=== PATIENT | female | born 1975 | race Caucasian/White ===

== ENCOUNTER 2016-09-28 02:00 | Emergency (ER) | payer OTHER ==
[2016-09-28 02:34] VITALS: BP 128/79; PULSE 90; TEMP 97.5; BMI 23.0
[2016-09-28] MEDS ORDERED: ONDANSETRON 4 MG TABLET PO ONE (02:44)
[2016-09-28] MEDS ORDERED: HEMOQUE CONTROL SOLUTION ONE (02:48)
[2016-09-28] MEDS ORDERED: ONDANSETRON *ODT* 4 MG TABLET ONE (02:49)
--- NOTE | 2016-09-28 03:04 | PDOC ---
History of Present Illness - General Chief Complaint: Nausea Stated Complaint: PANIC ATTACK, NAUSEA History Source: Patient Exam Limitations: No Limitations - History of Present Illness Initial Comments: 09/28/16 03:04 Patient is a 41 year old female with h/o panic attack, DM, HTN, HLD, abdominoplasty, liposuction c/o panic attack tonight about midnight states took her Klonazopam without relief of symptoms and so called EMS for transport to the hospital. Currently she is feeling better since being in the ED but she is feeling nauseous. She has no other c/o palpitations, chest pain, dizziness, RG , abdominal pain PMD: Dr. Lan PMHX: as above PSOCHx: denies cig, etoh, durgs FamHx: noncontributory GENERAL/CONSTITUTIONAL: [No fever or chills. No weakness. No weight change.] HEAD, EYES, EARS, NOSE AND THROAT: [No change in vision. No ear pain or discharge. No sore throat.] CARDIOVASCULAR: (-) chest pain or shortness of breath.] RESPIRATORY: [No cough, wheezing, or hemoptysis.] GASTROINTESTINAL: (+) nausea, (-) vomiting, diarrhea or constipation. No rectal bleeding.] GENITOURINARY: [No dysuria, frequency, or change in urination.] MUSCULOSKELETAL: [No joint or muscle swelling or pain. No neck or back pain.] SKIN AND BREASTS: [No rash or easy bruising.] NEUROLOGIC: [No headache, vertigo, loss of consciousness, or loss of sensation.] PSYCHIATRIC: (+) depression or anxiety.] ENDOCRINE: [No increased thirst. No abnormal weight change.] HEMATOLOGIC/LYMPHATIC: [No anemia, easy bleeding, or history of blood clots.] ALLERGIC/IMMUNOLOGIC: [No hives or skin allergy. No latex allergy.] GENERAL: [The patient is awake, alert, and fully oriented, in no acute distress. ] HEAD: [Normal with no signs of trauma.] EYES: [Pupils equal, round and reactive to light, extraocular movements intact, sclera anicteric, conjunctiva clear.] ENT: [Ears normal, nares patent, oropharynx clear without exudates. Moist mucous membranes.] NECK: [Normal range of motion, supple without lymphadenopathy, JVD, or masses.] LUNGS: [Breath sounds equal, clear to auscultation bilaterally. No wheezes, and no crackles.] HEART: [Regular rate and rhythm, normal S1 and S2 without murmur, rub.] ABDOMEN: [Soft, nontender, normoactive bowel sounds. No guarding, no rebound. No masses.] EXTREMITIES: [Normal range of motion, no edema. No clubbing or cyanosis. No cords, erythema, or tenderness.] NEUROLOGICAL: [Cranial nerves II through XII grossly intact. Normal speech, normal gait.] PSYCH: [Normal mood, normal affect.] SKIN: [Warm, Dry, normal turgor, no rashes or lesions noted.] Past History - Past Medical History Allergies/Adverse Reactions: Allergies Allergy/AdvReac Type Severity Reaction Status Date / Time No Known Allergies Allergy Verified 09/28/16 02:21 Home Medications: Ambulatory Orders Losartan Potassium [Cozaar -] 25 mg PO DAILY 05/17/15 Atorvastatin Ca [Lipitor] 10 mg PO HS 05/21/15 Metformin HCl [Glucophage] 500 mg PO BID 07/18/16 Diabetes: Yes (NIDDM) HTN: Yes Hypercholesterolemia: Yes HIV: No Psychiatric Problems: Yes (anxiety) Suicide Attempt (Hx): No - Surgical History Abdominal Surgery: Yes - Family Disease History Family Disease History: Heart Disease: Father ( of [place] at 63) - Immunization History Immunization Up to Date: No - Psycho/Social/Smoking Cessation Hx Anxiety: Yes Suicidal Ideation: No Smoking Status: No Smoking History: Never smoked Number of Cigarettes Smoked Daily: 0 Hx Alcohol Use: No Drug/Substance Use Hx: No Substance Use Type: None *Physical Exam - Vital Signs Last Vital Signs Temp Pulse Resp BP Pulse Ox 97.5 F L 90 18 128/79 99 09/28/16 02:30 09/28/16 02:30 09/28/16 02:30 09/28/16 02:30 09/28/16 02:30 ED Treatment Course - Medications Given in the ED: ED Medications Discontinued Medications Generic Name Dose Route Start Last Admin Trade Name Freq PRN Reason Stop Dose Admin Ondansetron HCl 4 mg 09/28/16 02:44 09/28/16 03:01 Zofran - PO 09/28/16 02:45 8 mg ONCE ONE Administration Medical Decision Making - Medical Decision Making 09/28/16 03:27 Patient is a 41 year old female with h/o panic attack, DM, HTN, HLD, abdominoplasty, liposuction c/o panic attack tonight about midnight states took her Klonazopam with relief of symptoms and so called EMS for transport to the hosptial. given Zofran 4 mg by mouth Finger stick done 176 Patient is feeling better and requesting to go home I discussed the physical exam findings, ancillary test results and final diagnoses with the patient. I answered all of the patient's questions. The patient was satisfied with the care received and felt comfortable with the discharge plan and treatment plan. The Patient agrees to follow up with the primary care physician within 24-72 hours. *DC/Admit/Observation/Transfer Diagnosis at time of Disposition: Nausea, Panic anxiety syndrome - Discharge Dispostion Disposition: HOME Condition at time of disposition: Stable - Referrals Referrals: Phong Lan [Primary Care Provider] - - Patient Instructions Printed Discharge Instructions: DI for Panic Disorder, DI for Nausea -- Adult Additional Instructions: Your Discharge Instructions: You must call primary care physician within 24 hours to arrange follow-up. Return to the Emergency Department with any new, persistent or worsening symptoms, for fever, chills, SOB, dizziness or any other concerning changes that may occur.
== END 2016-09-28 05:18 | disposition home or self-care (01) ==
LOC: JER 02:00
DX: F41.0 Panic disorder [episodic paroxysmal anxiety] (principal); R11.0 Nausea; I10 Essential (primary) hypertension; E78.00 Pure hypercholesterolemia, unspecified; E11.9 Type 2 diabetes mellitus without complications; Z79.01 Long term (current) use of anticoagulants
CPT/HCPCS: 99281-25

== ENCOUNTER 2017-03-10 04:21 | Emergency (ER) | payer OTHER ==
--- NOTE | 2017-03-10 04:37 | PDOC ---
History of Present Illness - General History Source: Patient Exam Limitations: No Limitations - History of Present Illness Initial Comments: 03/10/17 04:50 The patient is a 41 year old male, with a significant past medical history of HTN, HLD, diabetes, panic attacks and depression, who presents to the emergency department with abdominal pain, nausea, vomiting, and diarrhea that began yesterday. She states that she was the only person who ate what she last ate. Pt developed originally what she thought was heartburn but she soon after she began to experience diarrhea. Pt has been nauseous and vomiting. The patient denies chest pain, shortness of breath, headache and dizziness. Denies fever or chills. Denies dysuria, frequency, urgency and hematuria. Heart Disease: Father ( of [place] at 63) Allergies: None Past surgical history: Abdominal surgery Social history: No alcohol, tobacco or drug use PCP - Dr. Myrna Lan <Maria De Jesus Fermin - Last Filed: 03/10/17 04:49> - General History Source: Patient <Az Diaz - Last Filed: 03/10/17 07:00> - General Chief Complaint: Vomiting/Diarrhea Stated Complaint: VOMITING, DIARRHEA, ABD PAIN Time Seen by Provider: 03/10/17 04:35 Past History <Maria De Jesus Fermin - Last Filed: 03/10/17 04:49> - Past Medical History Diabetes: Yes (NIDDM) HTN: Yes Hypercholesterolemia: Yes HIV: No Psychiatric Problems: Yes (anxiety) Suicide Attempt (Hx): No - Surgical History Abdominal Surgery: Yes - Family Disease History Family Disease History: Heart Disease: Father ( of [place] at 63) - Immunization History Immunization Up to Date: No - Psycho/Social/Smoking Cessation Hx Anxiety: Yes Suicidal Ideation: No Smoking Status: No Smoking History: Never smoked Number of Cigarettes Smoked Daily: 0 Hx Alcohol Use: No Drug/Substance Use Hx: No Substance Use Type: None <Az Diaz - Last Filed: 03/10/17 07:00> - Past Medical History Allergies/Adverse Reactions: Allergies Allergy/AdvReac Type Severity Reaction Status Date / Time No Known Allergies Allergy Verified 09/28/16 02:21 Home Medications: Ambulatory Orders Losartan Potassium [Cozaar -] 25 mg PO DAILY 05/17/15 Atorvastatin Ca [Lipitor] 10 mg PO HS 09/29/15 Metformin HCl [Glucophage] 500 mg PO BID 07/18/16 Metoclopramide HCl [Reglan -] 10 mg PO TID #30 tablet 03/10/17 Review of Systems - Review of Systems Able to Perform ROS?: Yes Comments:: 03/10/17 04:50 CONSTITUTIONAL: Absent: fever, chills, diaphoresis, generalized weakness, malaise, loss of appetite HEENT: Absent: rhinorrhea, nasal congestion, throat pain, throat swelling, difficulty swallowing, mouth swelling, ear pain, eye pain, visual Changes CARDIOVASCULAR: Absent: chest pain, syncope, palpitations, irregular heart rate, lightheadedness , peripheral edema RESPIRATORY: Absent: cough, shortness of breath, dyspnea with exertion, orthopnea, wheezing, stridor, hemoptysis GASTROINTESTINAL: Present: abdominal pain, nausea, vomiting, diarrhea Absent: constipation, melena, hematochezia GENITOURINARY: Absent: dysuria, frequency, urgency, hesitancy, hematuria, flank pain, genital pain MUSCULOSKELETAL: Absent: myalgia, arthralgia, joint swelling SKIN: Absent: rash, itching, pallor HEMATOLOGIC/IMMUNOLOGIC: Absent: easy bleeding, easy bruising, lymphadenopathy, frequent infections ENDOCRINE: Absent: unexplained weight gain, unexplained weight loss, heat intolerance, cold intolerance NEUROLOGIC: Absent: headache, focal weakness or paresthesias, dizziness, unsteady gait, seizure, mental status changes, bladder or bowel incontinence PSYCHIATRIC: Absent: anxiety, depression, suicidal or homicidal ideation, hallucinations. <Maria De Jesus Fermin - Last Filed: 03/10/17 04:49> *Physical Exam - Physical Exam Comments: 03/10/17 04:51 GENERAL: Well developed, well nourished. Awake and alert. +Mild distress HEENT: Normocephalic, atraumatic. PERRLA, EOMI. No conjunctival pallor. Sclera are non- icteric. Moist mucous membranes. Oropharynx is clear. NECK: Supple. Full ROM. No JVD. Carotid pulses 2+ and symmetric, without bruits. No thyromegaly. No lymphadenopathy. CARDIOVASCULAR: Regular rate and rhythm. No murmurs, rubs, or gallops. Distal pulses are 2+ and symmetric. PULMONARY: No evidence of respiratory distress. Lungs clear to auscultation bilaterally. No wheezing, rales or rhonchi. ABDOMINAL: +Moderate tenderness to abdomen diffusely. Soft. Non-distended. No rebound or guarding. No organomegaly. Normoactive bowel sounds. MUSCULOSKELETAL Normal range of motion at all joints. No bony deformities or tenderness. No CVA tenderness. EXTREMITIES: No cyanosis. No clubbing. No edema. No calf tenderness. SKIN: Warm and dry. Normal capillary refill. No rashes. No jaundice. NEUROLOGICAL: Alert, awake, appropriate. PSYCHIATRIC: Cooperative. Good eye contact. Appropriate mood and affect. <Maria De Jesus Fermin - Last Filed: 03/10/17 04:49> ED Treatment Course - LABORATORY CBC & Chemistry Diagram: 03/10/17 04:45 03/10/17 04:45 <Maria De Jesus Fermin - Last Filed: 03/10/17 04:49> - LABORATORY CBC & Chemistry Diagram: 03/10/17 04:45 03/10/17 04:45 <Az Diaz - Last Filed: 03/10/17 07:00> Medical Decision Making - Medical Decision Making 03/10/17 06:59 Dr. Diaz: The scribe's documentation has been prepared under my direction and personally reviewed by me in its entirery. I confirm that the note above accurately reflects all work, treatment, procedures, and medical decision making performed by me. <Az Diaz - Last Filed: 03/10/17 07:00> *DC/Admit/Observation/Transfer - Attestations Scribe Attestion: 03/10/17 04:53 Documentation prepared by Maria De Jesus Fermin, acting as medical officer psychiatry for Az Diaz MD. <Maria De Jesus Fermin - Last Filed: 03/10/17 04:49> - Discharge Dispostion Admit: No <Az Diaz - Last Filed: 03/10/17 07:00> Diagnosis at time of Disposition: Abdominal pain Qualifiers: Abdominal location: generalized Qualified Code(s): R10.84 - Generalized abdominal pain - Discharge Dispostion Disposition: HOME Condition at time of disposition: Improved - Referrals Referrals: Phong Lan [Primary Care Provider] - - Patient Instructions Printed Discharge Instructions: DI for Abdominal Pain-Adult
[2017-03-10] MEDS ORDERED: PANTOPRAZOLE SODIUM 40 MG in SODIUM CHLORIDE 100 ML IVPB ONE (04:38)
[2017-03-10] MEDS ORDERED: morphine CARPU-JECT 4 MG/1 ML DISP.SYRIN IVPUSH ONE (04:38)
[2017-03-10] MEDS ORDERED: ONDANSETRON 4 MG/2 ML VIAL IVPUSH STA (04:39)
[2017-03-10] MEDS ORDERED: SODIUM CHLORIDE 1,000 ML IV STA (04:39)
[2017-03-10] MEDS ORDERED: ONDANSETRON 4 MG/2 ML VIAL ONE (04:44)
[2017-03-10] MEDS ORDERED: PANTOPRAZOLE SODIUM 40 MG VIAL ONE (04:45)
[2017-03-10 04:47] LABS: WHITE BLOOD COUNT 7.2 K/mm3 (4.0-10.0)
[2017-03-10 04:49] LABS: BASOPHIL 0.8 % (0-2.0); EOSINOPHIL 6.8 % (0-4.5); MCHC 32.8 g/dl (32.0-36.0); MEAN CELL VOLUME 91.4 fl (80-96); NEUTROPHILS 37.9 % (42.8-82.8); PLATELET COUNT 171 K/MM3 (134-434); RDW 13.8 % (11.6-15.6)
[2017-03-10 04:55] VITALS: BP 139/84; PULSE 109; TEMP 98.6; BMI 22.3
[2017-03-10] MEDS ORDERED: morphine CARPU-JECT 2 MG/1 ML DISP.SYRIN ONE (04:59)
[2017-03-10 05:16] LABS: ALBUMIN 3.9 g/dl (3.4-5.0); ANION GAP 8 (8-16); BILIRUBIN,TOTAL 0.3 mg/dL (0.2-1.0); CALCIUM 9.2 mg/dL (8.5-10.1); CO2 25 mmol/L (21-32); CREATININE 0.8 mg/dL (0.55-1.02); GLUCOSE,RANDOM 146 mg/dL (74-106); SGOT/AST 27 U/L (15-37); SGPT/ALT 50 U/L (12-78); TOT PROT 7.7 g/dl (6.4-8.2)
[2017-03-10 05:17] LABS: ALK PHOS 94 U/L (45-117)
[2017-03-10 05:22] LABS: MAGNESIUM 1.8 mg/dL (1.8-2.4)
[2017-03-10 05:26] LABS: ACETONE SERUM NEGATIVE (NEGATIVE)
[2017-03-10] MEDS ORDERED: METOCLOPRAMIDE HCL INJECTION 10 MG/2 ML VIAL IVPUSH ONE (05:28)
[2017-03-10 05:29] LABS: URINE APPEARANCE CLEAR; URINE BILIRUBIN NEGATIVE (NEGATIVE); URINE BLOOD NEGATIVE (NEGATIVE); URINE COLOR LTYELLOW; URINE GLUCOSE (UA) NEGATIVE (NEGATIVE); URINE KETONE TRACE (NEGATIVE); URINE LEUK ESTERASE NEGATIVE (NEGATIVE); URINE NITRITE NEGATIVE (NEGATIVE); URINE PROTEIN NEGATIVE (NEGATIVE); URINE UROBILINOGEN NEGATIVE mg/dL (0.2-1.0)
[2017-03-10] MEDS ORDERED: METOCLOPRAMIDE HCL INJECTION 10 MG/2 ML VIAL ONE (05:30)
== END 2017-03-10 07:05 | disposition home or self-care (01) ==
LOC: JER 04:21
PROC: 3E0337Z Introduction of Electrolytic and Water Balance Substance into Peripheral Vein, Percutaneous Approach (ICD-10-PCS; principal; 2017-03-10)
PROC: 3E033GC Introduction of Other Therapeutic Substance into Peripheral Vein, Percutaneous Approach (ICD-10-PCS; 2017-03-10)
PROC: 3E033NZ Introduction of Analgesics, Hypnotics, Sedatives into Peripheral Vein, Percutaneous Approach (ICD-10-PCS; 2017-03-10)
PROC: 3E033GC Introduction of Other Therapeutic Substance into Peripheral Vein, Percutaneous Approach (ICD-10-PCS; 2017-03-10)
DX: R10.84 Generalized abdominal pain (principal); I10 Essential (primary) hypertension; E78.00 Pure hypercholesterolemia, unspecified; E78.5 Hyperlipidemia, unspecified; E11.9 Type 2 diabetes mellitus without complications; Z79.84 Long term (current) use of oral hypoglycemic drugs; F41.0 Panic disorder [episodic paroxysmal anxiety]; F32.9 Major depressive disorder, single episode, unspecified
CPT/HCPCS: 36415; 80053; 81003; 82009; 82150; 83690; 83735; 84703; 85025; 85610; 96361; 96365; 96375; 99281-25

== ENCOUNTER 2017-04-27 06:55 | Emergency (ER) | payer OTHER ==
[2017-04-27 07:12] VITALS: TEMP 97.9; BMI 24.1
--- NOTE | 2017-04-27 07:31 | PDOC ---
History of Present Illness - General Chief Complaint: Respiratory Stated Complaint: DIFFICULTY BREATHING Time Seen by Provider: 04/27/17 07:11 History Source: Patient - History of Present Illness Presenting Symptoms: Chest Pain Timing/Duration: reports: resolved prior to arrival Chest Pain Radiation: reports: no radiation Past History - Past Medical History Allergies/Adverse Reactions: Allergies Allergy/AdvReac Type Severity Reaction Status Date / Time No Known Allergies Allergy Verified 04/27/17 07:57 Home Medications: Ambulatory Orders Losartan Potassium [Cozaar -] 25 mg PO DAILY 05/17/15 Atorvastatin Ca [Lipitor] 10 mg PO HS 05/21/15 Metformin HCl [Glucophage] 500 mg PO BID 07/18/16 Metoclopramide HCl [Reglan -] 10 mg PO TID #30 tablet 03/10/17 Diabetes: Yes (NIDDM) HTN: Yes Hypercholesterolemia: Yes HIV: No Psychiatric Problems: Yes (anxiety) Suicide Attempt (Hx): No - Surgical History Abdominal Surgery: Yes - Family Disease History Family Disease History: Heart Disease: Father ( of [place] at 63) - Immunization History Immunization Up to Date: No - Psycho/Social/Smoking Cessation Hx Anxiety: Yes Suicidal Ideation: No Smoking Status: No Smoking History: Unknown if ever smoked Number of Cigarettes Smoked Daily: 0 Hx Alcohol Use: No Drug/Substance Use Hx: No Substance Use Type: None Review of Systems - Review of Systems Constitutional: No: Chills, Fever Respiratory: No: Cough, Shortness of Breath Cardiac (ROS): Yes: Chest Pain, Chest Tightness. No: Lightheadedness, Palpitations, Syncope ABD/GI: No: Nausea, Vomiting *Physical Exam - Vital Signs Last Vital Signs Temp Pulse Resp BP Pulse Ox 97.9 F 92 H 14 113/86 99 04/27/17 07:07 04/27/17 07:07 04/27/17 07:07 04/27/17 07:07 04/27/17 07:07 - Physical Exam General Appearance: Yes: Appropriately Dressed. No: Apparent Distress HEENT: positive: Normal Voice Neck: positive: Supple Respiratory/Chest: positive: Lungs Clear, Normal Breath Sounds. negative: Respiratory Distress Cardiovascular: positive: Regular Rate, S1, S2 Extremity: positive: Normal Inspection Integumentary: positive: Dry, Warm Neurologic: positive: Fully Oriented, Alert, Normal Mood/Affect Heart Score/ECG Review - ECG Intrepretation Comment:: 04/27/17 08:00 Twelve-lead EKG was performed and reviewed by me. There is normal sinus rhythm with a normal rate. The axis is normal. The intervals are normal. There are no ST or T wave abnormalities. Impression: Normal twelve-lead EKG Medical Decision Making - Medical Decision Making 04/27/17 07:26 41-year-old female, history of diabetes, hypertension, hypercholesterolemia, panic attacks, takes ativan as needed, presents with shortness of breath with chest tightness and burning sensation to chest that started this morning while having a verbal altercation with her . Has since taken lorazepam and feels significantly better. Reports that she now feels tired. Patient states symptoms is consistent with her panic attack except that burning sensation to chest is a bit unusual. Patient has no known CAD. Denies SI/HI. Denies domestic violence at home and has no fear for her safety see exam Anxiety Since improved w/ ativan at home Pt sleeping in ED and stable on monitor w/ unremarkable exam -will check ekg given chest discomfort, if normal, will not proceed w/ w/u as very low suspicion for ACS -reassess 04/27/17 08:02 EKG unremarkable. Patient reports feeling significantly better w/ no sob or cp at this time. Feels comfortable with being discharged. Patient to follow-up with her PMD as needed 04/27/17 08:04 *DC/Admit/Observation/Transfer Diagnosis at time of Disposition: Anxiety - Discharge Dispostion Disposition: HOME Condition at time of disposition: Improved - Patient Instructions Printed Discharge Instructions: Anxiety and Panic Attacks (Alternative Therapy) Additional Instructions: Please follow-up with your primary care physician
[2017-04-27 09:20] VITALS: BP 128/74; PULSE 80
--- NOTE | 2017-04-27 17:27 | EKG ---
Test Reason : Blood Pressure : / mmHG Vent. Rate : 076 BPM Atrial Rate : 076 BPM P-R Int : 174 ms QRS Dur : 068 ms QT Int : 370 ms P-R-T Axes : 073 034 037 degrees QTc Int : 416 ms NORMAL SINUS RHYTHM NORMAL ECG WHEN COMPARED WITH ECG OF 13-MAR-2016 00:22, NO SIGNIFICANT CHANGE WAS FOUND CLINICAL CORRELATION IS RECOMMENDED Confirmed by EARL FROST MD ([id number]) on 04/27/2017 5:27:23 PM Referred By: Confirmed By:EARL FROST MD
== END 2017-04-27 07:45 | disposition home or self-care (01) ==
LOC: JER 06:55
DX: F41.9 Anxiety disorder, unspecified (principal); I10 Essential (primary) hypertension; E78.00 Pure hypercholesterolemia, unspecified; E11.9 Type 2 diabetes mellitus without complications
CPT/HCPCS: 93005; 93010; 99281-25

== ENCOUNTER 2017-05-18 05:09 | Emergency (ER) | payer OTHER ==
[2017-05-18 05:31] VITALS: BP 120/84; PULSE 75; TEMP 98.3; BMI 18.6
--- NOTE | 2017-05-18 07:07 | PDOC ---
History of Present Illness - General Chief Complaint: Psychiatric Stated Complaint: ANXIETY Time Seen by Provider: 05/18/17 05:34 Past History - Past Medical History Allergies/Adverse Reactions: Allergies Allergy/AdvReac Type Severity Reaction Status Date / Time No Known Allergies Allergy Verified 05/18/17 05:27 Home Medications: Ambulatory Orders Losartan Potassium [Cozaar -] 25 mg PO DAILY 05/17/15 Atorvastatin Ca [Lipitor] 10 mg PO HS 05/21/15 Metformin HCl [Glucophage] 500 mg PO BID 07/18/16 Clonazepam [Klonopin -] 0.5 mg PO DAILY PRN 05/18/17 Diabetes: Yes (NIDDM) HTN: Yes Hypercholesterolemia: Yes Psychiatric Problems: Yes (anxiety) - Surgical History Abdominal Surgery: Yes - Family Disease History Family Disease History: Heart Disease: Father ( of [place] at 63) - Immunization History Immunization Up to Date: No - Suicide/Smoking/Psychosocial Hx Smoking Status: No Smoking History: Never smoked Have you smoked in the past 12 months: No Number of Cigarettes Smoked Daily: 0 Information on smoking cessation initiated: No Hx Alcohol Use: No Drug/Substance Use Hx: No Substance Use Type: None *Physical Exam - Vital Signs Last Vital Signs Temp Pulse Resp BP Pulse Ox 98.3 F 75 18 120/84 100 05/18/17 05:28 05/18/17 05:28 05/18/17 05:28 05/18/17 05:28 05/18/17 05:28 *DC/Admit/Observation/Transfer Diagnosis at time of Disposition: Panic attack - Discharge Dispostion Disposition: HOME Condition at time of disposition: Stable Admit: No - Referrals Referrals: Phong Lan [Primary Care Provider] - - Patient Instructions Printed Discharge Instructions: DI for Anxiety -- Adult, Anxiety and Panic Attacks (Alternative Therapy) Additional Instructions: Please try to establish care with a therapist or psychiatrist for continued evaluation of your anxiety and panic attacks. If you have any new or worsening symptoms, please return to the ER.
--- NOTE | 2017-05-18 13:16 | EKG ---
Test Reason : Blood Pressure : / mmHG Vent. Rate : 080 BPM Atrial Rate : 080 BPM P-R Int : 170 ms QRS Dur : 072 ms QT Int : 358 ms P-R-T Axes : 008 044 037 degrees QTc Int : 412 ms NORMAL SINUS RHYTHM NORMAL ECG WHEN COMPARED WITH ECG OF 27-APR-2017 07:35, NO SIGNIFICANT CHANGE WAS FOUND Confirmed by EARL FROST MD ([id number]) on 05/18/2017 1:15:36 PM Referred By: Confirmed By:EARL FROST MD
== END 2017-05-18 07:42 | disposition home or self-care (01) ==
LOC: JER 05:09
DX: F41.0 Panic disorder [episodic paroxysmal anxiety] (principal); I10 Essential (primary) hypertension; E11.9 Type 2 diabetes mellitus without complications; E78.00 Pure hypercholesterolemia, unspecified
CPT/HCPCS: 93005; 93010; 99282-25

== ENCOUNTER 2017-06-14 03:29 | Emergency (ER) | payer OTHER ==
[2017-06-14 03:52] VITALS: BP 132/85; PULSE 94; TEMP 98; BMI 21.5
[2017-06-14] MEDS ORDERED: ALBUTEROL SO4 2.5/IPRATROPIUM 0.5 INH SOL 3 ML VIAL.NEB. NEB ONE ×2 (03:55→04:15)
[2017-06-14] MEDS ORDERED: predniSONE 20 MG TABLET (UD) PO ONE (03:55)
--- NOTE | 2017-06-14 04:00 | PDOC ---
History of Present Illness - General Chief Complaint: Respiratory Stated Complaint: DIFFICULTY BREATHING Time Seen by Provider: 06/14/17 03:46 History Source: Patient Exam Limitations: No Limitations - History of Present Illness Initial Comments: 06/14/17 03:55 41yo Female patient w/ PmHx: HTN, HLD, NIDDM, Asthma, Liposuction, and Tummy Tuck presents to the ED c/o difficulty breathing that began tonight. Patient states she occasionally gets symptoms like this, and drinks water to try and clear her throat. Patient reports feeling of something blocking her airway. She denies fever, CP, Back pain, Abd pain, vaginal bleeding, hemoptysis, or any other complaints at this time. LNMP: 1 week ago. +current smoker. Timing/Duration: reports: just prior to arrival Severity: reports: mild Episode Description: See HPI Possible Cause: Yes: occasional episodes Modifying Factors: improves with: coughing, other. worse with: activity, albuterol inhaler, albuterol nebulizer, antibiotics, lying down, oxygen, rest Associated Symptoms: reports: cough. denies: denies symptoms, chest pain/ soreness, dizziness, earache, facial pain, fever/chills, headache, lightheadedness, muscle aches, nasal congestion, nasal drainage, shortness of breath, sinus infection, sore throat, wheezing, other Aspirin Received prior to arrival: No: no aspirin today, unknown, 81 mg x 1, 81 mg x 2, 81 mg x 3, 81 mg x 4, 325 mg x 1, provided at home, provided by EMS, provided by ED ASA Contraindications(Core Measure): No: Allergy, Other, Active Blding w/i 24 hrs., Plavix, Receiving Warfarin Past History - Travel Traveled outside of the country in the last 30 days: No Close contact w/someone who was outside of country & ill: No - Past Medical History Allergies/Adverse Reactions: Allergies Allergy/AdvReac Type Severity Reaction Status Date / Time No Known Allergies Allergy Verified 05/18/17 05:27 Home Medications: Ambulatory Orders Losartan Potassium [Cozaar -] 25 mg PO DAILY 05/17/15 Atorvastatin Ca [Lipitor] 10 mg PO HS 05/21/15 Metformin HCl [Glucophage] 500 mg PO BID 07/18/16 Clonazepam [Klonopin -] 0.5 mg PO DAILY PRN 05/18/17 Alprazolam [Xanax] 0.5 mg PO TID PRN #9 tablet MDD 3 tab 06/14/17 Azithromycin [Zithromax -] 250 mg PO DAILY #4 tablet 06/14/17 Clonazepam [KlonoPIN] 0.5 mg PO BID PRN #8 tablet MDD 2 tab 06/14/17 Guaifenesin [Mucinex] 600 mg PO Q12H PRN #24 tab.er.12h 06/14/17 Prednisone [Deltasone -] 20 mg PO DAILY #4 tablet 06/14/17 Sitagliptin Phosphate [Januvia] 50 mg PO DAILY 06/14/17 Diabetes: Yes (NIDDM) HTN: Yes Hypercholesterolemia: Yes Psychiatric Problems: Yes (Anxiety) - Surgical History Abdominal Surgery: Yes (Lipo & tummy tuck) - Family Disease History Family Disease History: Heart Disease: Father ( of [place] at 63) - Immunization History Immunization Up to Date: No - Suicide/Smoking/Psychosocial Hx Smoking Status: No Smoking History: Never smoked Have you smoked in the past 12 months: No Number of Cigarettes Smoked Daily: 0 Information on smoking cessation initiated: No Hx Alcohol Use: No Drug/Substance Use Hx: No Substance Use Type: None Respiratory Specific PMHX - Complaint Specific PMHX Angina: No Bronchitis: No Pneumonia: No Pulmonary Embolus: No TB (Tuberculosis): No Review of Systems - Review of Systems Able to Perform ROS?: Yes Is the patient limited Setswana proficient: No Constitutional: No: Chills, Fever Respiratory: Yes: Cough, Other (Diff breathing). No: Shortness of Breath, Wheezing, Productive cough Cardiac (ROS): No: Chest Pain, Lightheadedness, Palpitations, Chest Tightness ABD/GI: No: Constipated, Diarrhea, Nausea, Vomiting : No: Burning, Dysuria, Flank Pain, Hematuria, Pain Musculoskeletal: No: Back Pain All Other Systems: Reviewed and Negative *Physical Exam - Vital Signs Last Vital Signs Temp Pulse Resp BP Pulse Ox 98.0 F 94 H 20 132/85 100 06/14/17 03:48 06/14/17 03:48 06/14/17 03:48 06/14/17 03:48 06/14/17 03:48 - Physical Exam General Appearance: Yes: Nourished, Appropriately Dressed. No: Apparent Distress, Mild Distress, Moderate Distress, Severe Distress HEENT: positive: EOMI, NASIMA, Normal ENT Inspection, Normal Voice, Symmetrical, TMs Normal, Pharynx Normal Neck: positive: Trachea midline, Normal Thyroid, Supple. negative: Rigid, Stridor, Lymphadenopathy (R), Lymphadenopathy (L), Tender lateral, Tender midline Respiratory/Chest: positive: Lungs Clear, Normal Breath Sounds. negative: Chest Tender, Respiratory Distress, Accessory Muscle Use, Labored Respiration, Rapid RR, Rhonchi, Stridor, Wheezing Cardiovascular: positive: Regular Rhythm, Regular Rate Musculoskeletal: positive: Normal Inspection. negative: CVA Tenderness, Decreased Range of Motion, Vertebral Tenderness Extremity: positive: Normal Capillary Refill, Normal Inspection, Normal Range of Motion. negative: Pedal Edema, Swelling, Calf Tenderness, Erythema, Inflammation Integumentary: positive: Normal Color, Dry, Warm Neurologic: positive: aircraft avionics technician II-XII NML intact, Fully Oriented, Alert, Normal Mood/ Affect, Normal Response, Motor Strength 5/5 *DC/Admit/Observation/Transfer Diagnosis at time of Disposition: Bronchitis, Anxiety - Discharge Dispostion Disposition: HOME Condition at time of disposition: Stable Admit: No - Prescriptions Prescriptions: Prednisone [Deltasone -] 20 mg PO DAILY #4 tablet Clonazepam [KlonoPIN] 0.5 mg PO BID PRN #8 tablet MDD 2 tab PRN Reason: Anxiety Guaifenesin [Mucinex] 600 mg PO Q12H PRN #24 tab.er.12h PRN Reason: Cough Alprazolam [Xanax] 0.5 mg PO TID PRN #9 tablet MDD 3 tab PRN Reason: Anxiety Azithromycin [Zithromax -] 250 mg PO DAILY #4 tablet - Referrals Referrals: Phong Lan [Primary Care Provider] - - Patient Instructions Printed Discharge Instructions: DI for Acute Bronchitis Additional Instructions: Follow up with your primary care provider this week for further evaluation. Take medications as prescribed. Drink plenty water to help bring out mucus. Print Language: MEXICAN
[2017-06-14] MEDS ORDERED: predniSONE 20 MG TABLET (UD) ONE (04:14)
[2017-06-14] MEDS ORDERED: AZITHROMYCIN 250 MG TABLET PO ONE (04:36)
[2017-06-14] MEDS ORDERED: ALPRAZolam 2 MG TABLET PO ONE (04:42)
[2017-06-14] MEDS ORDERED: AZITHROMYCIN 250 MG TABLET ONE (04:43)
[2017-06-14] MEDS ORDERED: clonazePAM 0.5 MG TABLET ONE (04:45)
[2017-06-14] MEDS ORDERED: clonazePAM 0.5 MG TABLET PO ONE (04:45)
== END 2017-06-14 05:02 | disposition home or self-care (01) ==
LOC: JER 03:29
PROC: 3E0F7GC Introduction of Other Therapeutic Substance into Respiratory Tract, Via Natural or Artificial Opening (ICD-10-PCS; principal; 2017-06-14)
DX: J40 Bronchitis, not specified as acute or chronic (principal); F41.9 Anxiety disorder, unspecified; I10 Essential (primary) hypertension; E11.9 Type 2 diabetes mellitus without complications; Z79.84 Long term (current) use of oral hypoglycemic drugs; E78.00 Pure hypercholesterolemia, unspecified; F17.210 Nicotine dependence, cigarettes, uncomplicated
CPT/HCPCS: 94640; 99281-25